=== PATIENT | male | born 1995 | race Caucasian/White ===

== ENCOUNTER → 2020-02-04 | Emergency (ER) | payer OTHER, SELFPAY ==
[~2020-02-04] VITALS: Ht 167.6 cm; Wt 74.8 kg
[2020-02-04 13:41] LABS: Basophils # (auto) 0.1 10 ^3/uL (0-0.2); Basophils % (auto) 1.1 % (0.0-2.0); Eosinophils # (auto) 0.4 10 ^3/uL (0-0.8); Eosinophils % (auto) 3.5 % (0.0-7.0); Hematocrit 40.5 % (41.0-53.0); Hemoglobin 13.4 g/dL (13.5-17.5); Lymphocytes # (auto) 2.5 10 ^3/uL (0.4-5.4); Lymphocytes % (auto) 25.1 % (10.0-50.0); Mean Corpuscular Hemoglobin 28.2 pg (28.0-32.0); Mean Corpuscular Hgb Conc. 33.1 g/dL (32.0-36.0); Mean Corpuscular Volume 85.2 fL (80.0-100.0); Monocytes # (auto) 0.9 10 ^3/uL (0-1.3); Monocytes % (auto) 8.5 % (0.0-12.0); Neutrophils # (auto) 6.3 10 ^3/uL (1.6-8.6); Neutrophils % (auto) 61.8 % (37.0-80.0); Nucleated Red Blood Cells % 0.1 %; Platelet Count (auto) 361 10^3/uL (140-450); Red Blood Cells 4.75 10^6/uL (4.5-5.90); Red Cell Distribution Width 13.2 % (11.8-14.3); Urine Bacteria NONE SEEN /hpf (None Seen); Urine Blood Negative /uL (Negative); Urine Specific Gravity 1.007 (1.001-1.035); Urine WBC 1 /hpf (0 - 3); White Blood Cell 10.1 10^3/uL (4.4-10.8)
[2020-02-04 13:52] LABS: INR 1.02 (0.9-1.15); Partial Thromboplastin Time 22.5 sec (23.0-31.2)
[2020-02-04 13:56] LABS: Albumin 3.6 g/dL (3.4-5.0); Amphetamine Screen, Urine POSITIVE (NEGATIVE); Anion Gap 4 (5-15); Barbiturate Scree,Urine NEGATIVE (NEGATIVE); Benzodiazephine Screen, Urine NEGATIVE (NEGATIVE); Blood Urea Nitrogen 12 mg/dL (7-18); Calcium 8.4 mg/dL (8.5-10.1); Cannabinoid Screen, Urine NEGATIVE (NEGATIVE); Carbon Dioxide 24 mmol/L (21-32); Chloride 107 mmol/L (98-107); Cocaine Screen, Urine NEGATIVE (NEGATIVE); Glucose 79 mg/dL (74-106); Opiate Scree,Urine NEGATIVE (NEGATIVE); Phencyclidine Screen, Urine NEGATIVE (NEGATIVE); Potassium 3.7 mmol/L (3.5-5.1); Sodium 135 mmol/L (136-145)
[2020-02-04 14:01] LABS: Alanine Aminotransferase 29 U/L (16-61); Alkaline Phosphatase 127 U/L (45-117); Aspartate Aminotransferase 21 U/L (15-37); Bilirubin, Total 0.3 mg/dL (0.2-1.0); GFR African American 155 mL/min; GFR Non-African American 128 mL/min; Total Protein 6.9 g/dL (6.4-8.2)
[2020-02-04 14:10] LABS: Alcohol, Urine < 3.0 mg/dL (0-10)
[2020-02-04 14:50] VITALS: BP 140/70
== END | disposition home or self-care (01) ==
LOC: ER 12:03
DX: R07.89 Other chest pain (principal); F15.20 Other stimulant dependence, uncomplicated; F17.210 Nicotine dependence, cigarettes, uncomplicated; Z20.828 Contact with and (suspected) exposure to other viral communicable diseases
CPT/HCPCS: 36415; 71045; 80053; 80307; 81001; 83605; 83735; 84484; 85025; 85610; 85730; 87040; 87426; 93005